=== PATIENT | male | born 1960 | race Caucasian/White ===

== ENCOUNTER 2024-11-11 03:35 | Emergency (ER) | payer MEDICAID, OTHER ==
[~2024-11-11] VITALS: Ht 180.3 cm; Wt 80.5 kg
[~2024-11-11 03:35] MED LIST: ASPI-107 PO; LEVE10006 PO
[2024-11-11 03:45] VITALS: TEMP 97.1
[2024-11-11 05:57] VITALS: BP 170/104; PULSE 82; RESP 18; O2SAT 98
[2024-11-11] MEDS ORDERED: AMLO5TAB PO (06:15)
== END 2024-11-11 06:23 | disposition home or self-care (01) ==
LOC: ER 03:36
DX: K40.90 Unilateral inguinal hernia, without obstruction or gangrene, not specified as recurrent (principal); I10 Essential (primary) hypertension; I25.10 Atherosclerotic heart disease of native coronary artery without angina pectoris; E78.00 Pure hypercholesterolemia, unspecified; F31.9 Bipolar disorder, unspecified; Z79.899 Other long term (current) drug therapy
CPT/HCPCS: 99284